=== PATIENT | male | born 1950 | race Caucasian/White ===

== ENCOUNTER 2017-08-18 00:36 | Inpatient (IN) | payer OTHER ==
[~2017-08-18] VITALS: Ht 170.2 cm; Wt 68.9 kg
[2017-08-18 00:45] VITALS: BP 115/76
[2017-08-18] MEDS ORDERED: ACETAMINOPHEN 325 MG TABLET PO PRN (01:30)
[2017-08-18] MEDS ORDERED: MAG HYDROX/AL HYDROX/SIMETH 30 ML UDC PO PRN (01:30)
[2017-08-18] MEDS ORDERED: MAGNESIUM HYDROXIDE 30 ML UDC PO PRN (01:30)
[2017-08-18 01:36] VITALS: BP 115/76
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
[2017-08-18] MEDS ORDERED: QUET25TA PO (07:24)
[2017-08-18] MEDS ORDERED: BENA40TA67 PO (08:14)
[2017-08-18 08:48] VITALS: BP 138/93
[2017-08-18] MEDS: LORAZEPAM 0.5 MG TABLET PO PRN (09:52)
--- NOTE | 2017-08-18 09:54 | NUR ---
RN NOTE: PATIENT IS CONFUSED AND AGITATED. BARCODE ON PATIENTS WRIST BAND IS NOT SCANNING. ATIVAN 1MG GIVEN.
[2017-08-18 16:00] VITALS: BP 119/87
[2017-08-18] MEDS: risperiDONE-M 0.5 MG TAB.RAPDIS PO SCH (17:45)
--- NOTE | 2017-08-18 17:46 | NUR ---
RN NOTE: BARCODE ON PATIENT WRIST NOT SCANNING. 1700 MEDS GIVEN
[2017-08-18 19:37] VITALS: BP 130/72
[2017-08-18] MEDS: ZOLPIDEM TARTRATE 5 MG TABLET PO PRN (20:22)
[2017-08-19 06:41] LABS: BASOPHILS % (AUTO) 0.5 % (0.0-2.0); EOSINOPHILS % (AUTO) 0.6 % (0.0-6.0); HEMATOCRIT 37 % (39-51); HEMOGLOBIN 12.8 g/dL (13.5-17.5); LYMPHOCYTES # (AUTO) 1.3 /CMM (0.8-4.8); LYMPHOCYTES % (AUTO) 23.5 % (20.0-44.0); MEAN CORPUSCULAR HEMOGLOBIN 31 PG (26.0-33.0); MEAN CORPUSCULAR HGB CONC 34 g/dl (31.0-36.0); MEAN CORPUSCULAR VOLUME 91 fL (80-96); MONOCYTES # (AUTO) 0.5 /CMM (0.1-1.30); MONOCYTES % (AUTO) 9.7 % (2.0-12.0); NEUTROPHILS # (AUTO) 3.7 /CMM (1.8-8.9); NEUTROPHILS % (AUTO) 65.7 % (43.0-81.0); PLATELET COUNT (AUTO) 358 /CMM (150-450); RDW COEFFICIENT OF VARIATION 13.6 (11.5-15.0); RED BLOOD CELL COUNT(AUTO) 4.08 MIL/uL (4.5-6.0); WHITE BLOOD COUNT (AUTO) 5.6 K/uL (4.3-11.0)
[2017-08-19 06:47] LABS: ALBUMIN 3.6 g/dL (3.4-5.0); BILIRUBIN,TOTAL 0.5 mg/dL (0.2-1.0); CALCIUM, SERUM 9.1 mg/dL (8.5-10.1); CREATININE 0.9 mg/dL (0.6-1.3); POTASSIUM 4.2 mmol/L (3.5-5.1); TOTAL PROTEIN, SERUM 6.9 g/dL (6.4-8.2)
[2017-08-19 06:55] LABS: THYROID STIMULATING HORMONE 1.698 uIU/mL (0.358-3.74)
[2017-08-19 08:00] VITALS: BP 143/94
[2017-08-19] MEDS: risperiDONE-M 0.5 MG TAB.RAPDIS PO SCH ×2 (10:00→17:07)
--- NOTE | 2017-08-19 13:55 | NUR ---
Discharge Planning: VINCENT called and spoke with Iván with [facility] . Iván stated that the patient's family has been attempting to get patient into an inpatient unit for the past few weeks. Iván stated that the patient does not meet criteria for SNF placement and that the family has been refusing all services offered by the pediatric social worker from [facility]. Family is resistant to any services that the pediatric social worker from [facility] has been trying to set them up with. Iván also stated that the [facility] paperwork was missing from the initial clinical faxed by intake. VINCENT faxed the [facility] paperwork to fax number [phone]. Iván stated that the primary record clerk salesperson for this case is Tanvir, . SW to follow up with Tanvir. VINCENT called and spoke with patient's DPOA/daughter, Lacie Reading [phone]. Lacie stated that she wanted SNF placement for her father. VINCENT explained the situation and stated that there are not many options. VINCENT encouraged Lacie to dis-enroll her father from [facility] and enroll him on Medicare. Lacie asked VINCENT to call her mother Lesly, . VINCENT called that number, but the call did not go through because the voicemail box was full. VINCENT then called Lacie back and asked her to have the mother call VINCENT when she is available. VINCENT provided Lacie with her direct contact number.
[2017-08-19 16:00] VITALS: BP 150/78
[2017-08-19 19:55] VITALS: BP 149/97
[2017-08-19] MEDS: ZOLPIDEM TARTRATE 5 MG TABLET PO PRN (21:14)
[2017-08-20] MEDS: LORAZEPAM 0.5 MG TABLET PO PRN (00:20)
[2017-08-20 07:57] VITALS: BP 117/82
[2017-08-20] MEDS: risperiDONE-M 0.5 MG TAB.RAPDIS PO SCH ×3 (08:21→17:05)
--- NOTE | 2017-08-20 09:25 | NUR ---
Discharge Planning: SW received a call from patient's Lesly, . Lesly stated that she has been visiting the patient daily and that she feels he is not doing as well on the current medication. SW stated that she will ask psychiatrist to call Lesly to discuss the matter. SW then had a lengthy conversation with patient's regarding the discharge plan. SW explained that, due to the nature of patient's insurance, SNF placement is unlikely. SW encouraged to dis-enroll patient from his current plan and enroll him in Medicare. Patient's stated that she will begin that process. She stated that she understands that the process can take a while and that the option is for patient to come back home. Lesly stated that she understands and will take him home once he is stable.
--- NOTE | 2017-08-20 11:01 | NUR ---
UR Update: VINCENT faxed updated clinicals to Tanvir from [facility], ext 560 / fax #[phone].
--- NOTE | 2017-08-20 11:27 | NUR ---
VINCENT spoke with Honey, patient's assigned manager social responsibility from [facility]. Honey explained that she met with patient and his family last week and that she provided them with resources. Honey stated that, she too, informed the family that they would need to dis-enroll from [facility] in order to receive the services that they want. VINCENT told Honey that she has been having similar conversations with the family. Addendum: 08/20/17 at 1130 by BETSY KAUR Honey direct line is [phone]
--- NOTE | 2017-08-20 14:31 | NUR ---
RN-CO: DR Viviane MONTALVO, REQUESTED TO CHANGE LAMINATION INSPECTOR FROM "EPIC" TO HIS NAME.
[2017-08-20 16:00] VITALS: BP 120/81
--- NOTE | 2017-08-20 19:30 | NUR ---
GPS RN NOTE, RECEIVED PATIENT AWAKE AND IN BED, NO S/S OR COMPLAINTS OF PAIN AT THIS TIME. PATIENT IS DISPLAYING NO S/S OF APPARENT DISTRESS AT THIS TIME. PATIENT BREATHING IS UNLABORED WITH EQUAL RISE AND FALL OF THE CHEST. PATIENT IS ALERT AND ORIENTED X 1 ON ROOM AIR WITH A SPO2 99 %. PATIENT HAS FAMILY AT BED SIDE. PATIENT IS MED COMPLIANT, DISORGANIZED, ANXIOUS, CONFUSED, AND NEEDS REORIENTATION. PATIENT DENIES SUICIDE IDEATIONS AND HOMICIDAL IDEATIONS AT THIS TIME BUT IS CONFUSED. PATIENT ASSISTED WITH TURNING AND REPOSITIONING Q2HR AND PRN FOR COMFORT AND CIRCULATION. PATIENT HAS NO NEEDS AT THIS TIME. PATIENT EDUCATED ON THE USE OF THE CALL VERDE. PATIENT BED SIDE RAILS ARE UP X 2 FOR SAFETY, BED IS LOCKED AND LOW WILL CONTINUE TO MONITOR Q 15 MIN AND MAINTAIN SAFETY WITH THE HELP OF STAFF.
[2017-08-20 19:56] VITALS: BP 153/92
[2017-08-21 08:00] VITALS: BP 131/88
[2017-08-21] MEDS: risperiDONE-M 0.5 MG TAB.RAPDIS PO SCH ×2 (09:14→12:42)
--- NOTE | 2017-08-21 14:28 | NUR ---
UR Update: VINCENT faxed updated clinicals to Tanvir from [facility], ext [phone] / fax #[phone]. VINCENT also spoke directly with Tanvir to discuss discharge plan and to confirm that he received the clinicals.
--- NOTE | 2017-08-21 14:37 | NUR ---
VINCENT received a voicemail from Marcela from [facility], ext [phone]. Marcela stated that she wanted to discuss and arrange follow-up care for patient. VINCENT called Marcela and left a voicemail for her with her direct contact information.
--- NOTE | 2017-08-21 15:46 | NUR ---
Initial Discharge Note: Patient resides at [address] [id number] with his , Joslyn Reading [phone]. Patient will return home when he is stabilized and ready for discharge. VINCENT confirmed this with patient's . VINCENT had several conversations with patient's regarding the discharge plan and encouraged her to dis-enroll patient from current insurance and enroll him in Medicare so that family has more options in the future for alternative placement. SW to follow up with MD and arrange safe and proper discharge. Addendum: 08/22/17 at 1445 by BETSY KAUR PLEASE NOTE THAT JOSLYN IS PATIENT'S DAUGHTER. PATIENT'S IS GERALD AT [phone]
--- NOTE | 2017-08-21 15:55 | NUR ---
GPS/RN-NOTES RECEIVED A CALL FROM DR. INIGUEZ WITH T.O ORDER TO D/C RISPERDAL-M 0.5MG P.O TID AND ORDER RISPERDAL 1MG P.O Q HS. NOTED AND CARRIED OUT.
[2017-08-21 16:00] VITALS: BP 132/80
--- NOTE | 2017-08-21 16:12 | NUR ---
Discharge Planning: VINCENT spoke with patient's DPOA/daughter, Lacie Reading [phone]. VINCENT informed Lacie that patient's discharge date is tentatively set for Saturday. VINCENT had a conversation with Lacie regarding placement options/resources that come with enrolling patient on a straight Medicare insurance. Lacie stated that she appreciates the information and confirmed that family will be taking patient home upon discharge. Lacie stated that her mother did manage to dis-enroll patient from [place] and that Medicare should start in August.
[2017-08-21 20:00] VITALS: BP 150/78
[2017-08-21 20:14] VITALS: BP 150/78
[2017-08-21] MEDS ORDERED: risperiDONE-M 0.5 MG TAB.RAPDIS PO SCH (22:00)
[2017-08-22] MEDS: ZOLPIDEM TARTRATE 5 MG TABLET PO PRN (00:33)
[2017-08-22 08:00] VITALS: BP 110/63
[2017-08-22] MEDS: LORAZEPAM 0.5 MG TABLET PO PRN (09:19)
--- NOTE | 2017-08-22 09:25 | NUR ---
GPS/RN-NOTES NOTED PATIENT VERY ANXIOUS WITH AGGRESSIVE BEHAVIOR HITTING STAFF WITH BOTH HANDS. UNCOOPERATIVE. REDIRECTED AND REORIENTED PATIENT. ATIVAN 1MG P.O GIVEN PRN ORDER. WILL CONT. MONITORING Q15 MINS. FOR SAFETY AND BEHAVIOR.
--- NOTE | 2017-08-22 10:30 | NUR ---
GPS/RN-NOTES PATIENT IN THE DAY ROOM UP IN THE CHAIR CALM AND COOPERATIVE AT THIS TIME.
[2017-08-22] MEDS ORDERED: LORAZEPAM 1 MG TABLET PO PRN (14:30)
--- NOTE | 2017-08-22 14:35 | NUR ---
DR. MONTALVO CAME AND EXAMINED PT. AND ORDERED TO CHANGED ATIVAN 1 MG PO Q6HR PRN FOR ANXIETY.
--- NOTE | 2017-08-22 14:38 | NUR ---
VINCENT called and spoke with Marcela from [facility], ext [phone]. Marcela stated that she has set up the following appointments for patient: Dr. Willams, psychiatrist, [address] [address], on at 10am. Dr. Pathak, psychiatrist, [address] [place] [address] [place] [address], , but patient needs to call to set up appointment Dr. Cazares, psychologist, [address] [place] [address], , but patient needs to call to set up appointments.
--- NOTE | 2017-08-22 14:45 | NUR ---
Discharge Planning: SW spoke with patient's daughter Lacie Reading [phone] and informed her that her father will be discharging on Saturday. Lacie stated that her mom [patient's ] will pick patient up. SW to follow up and coordinate.
--- NOTE | 2017-08-22 14:51 | NUR ---
UR Update: VINCENT faxed updated clinicals to Tanvir from [facility], ext [phone] / fax #[phone]
--- NOTE | 2017-08-22 15:25 | NUR ---
GPS/RN-NOTES PATIENT IN THE DAY ROOM VERY ANXIOUS HITTING HIS CHAIR TRAY WITH HIS BOTH HANDS. REDIRECTED AND REORIENTED PATIENT. ATIVAN 1MG P.O GIVEN PRN ORDER. WILL CONT. MONITORING Q15 MINS. FOR SAFETY AND BEHAVIOR.
--- NOTE | 2017-08-22 15:38 | NUR ---
Discharge Planning: SW called and left a voicemail for patient's daughter Lacie Reading [phone], asking her to call back so that SW can confirm the discharge and transportation. SW also attempted to call patient's , Lesly [phone], but is unable to leave a message because the voicemail box has not been set up.
[2017-08-22 15:45] VITALS: BP 128/80
--- NOTE | 2017-08-22 16:30 | NUR ---
GPS/RN-NOTES PATIENT IN THE DAY ROOM AMBULATING WITH CONFUSION.REDIRECTED PATIENT. PATIENT IS CALM AND COOPERATIVE AT THIS TIME.
--- NOTE | 2017-08-22 19:35 | NUR ---
GPS RN NOTES: RECEIVED PATIENT AMBULATING IN THE HALLWAY WITH RITESH, PATIENT IS CONFUSED, NO ACUTE DISTRESS NOTED. PATIENT'S RITESH IS REQUESTING NOT TO GIVE RISPERDAL THAT IS SCHEDULED FOR TONIGHT, PAGED AND SPOKE TO DR. INIGUEZ, NOTIFIED REGARDING 'S REQUEST, DR. INIGUEZ SPOKE ALSO TO THE . DR. INIGUEZ ORDERED TO LET THE SIGN AGAINST MEDICAL ADVICE FORM, (AMA) AND NO PRESCRIPTION TO BE GIVEN. DAUGHTER JOSLYN RAMIREZ (POA), WAS CALLED AND NOTIFIED ABOUT PATIENT LEAVING AMA. PERSONAL BELONGINGS WERE TAKEN BY , PATIENT LEFT ACCOMPANIED BY .
--- NOTE | 2017-08-23 10:48 | NUR ---
Discharge Note: Patient was discharged AMA on evening to go home with his family to [address] [place] [address]. Patient was picked up by his , Lesly, during visiting hours. SW called and informed family that patient has a psychiatry appointment scheduled through his current insurance, [employer]. The psychiatrist is Dr. Willams [address] [address], and the appointment is for September 16 at 10am. Additional resources included another psychiatrist, Dr. Pathak, psychiatrist, [address] [place], and a psychologist, Dr. Cazares, psychologist, [address] [place] [address], . For both of the additional doctors, patients insurance requested that patient call and schedule his own appointments.
--- NOTE | 2017-08-26 09:24 | NUR ---
UR Update: VINCETN faxed AMA paperwork and discharge summary to Tanvir from [facility], ext [phone] / fax #[phone]
== END 2017-08-22 20:08 | disposition left against medical advice (07) | DRG 885 ==
LOC: GPS 00:36
PROVIDERS: ADMIT Psychiatry & Neurology Psychiatry; ATTEND Psychiatry & Neurology Psychiatry
DX: F29 Unspecified psychosis not due to a substance or known physiological condition (principal); F03.91 Unspecified dementia, unspecified severity, with behavioral disturbance; R47.01 Aphasia; Z73.6 Limitation of activities due to disability; Z79.899 Other long term (current) drug therapy; R47.02 Dysphasia
CPT/HCPCS: 36415; 70450-TC; 80053-TC; 80061-TC; 84443-TC; 85025-TC; 86592; 87081-TC